=== PATIENT | female | born 1990 | race African-American/Black ===

== ENCOUNTER 2016-05-05 20:04 | Emergency (ER) | payer SELFPAY ==
[~2016-05-05] VITALS: Ht 154.9 cm; Wt 100.0 kg
[~2016-05-05 20:04] MED LIST: DICL75TA PO; ROBA750T PO
[2016-05-05 20:06] VITALS: BP 122/76; PULSE 80; RESP 18; TEMP 98.2; O2SAT 98
[2016-05-05] MEDS ORDERED: AMOXICILLIN (TRIHYDRATE) 500 MG CAP PO ONE (22:15)
[2016-05-05] MEDS ORDERED: IBUPROFEN 800 MG TAB PO ONE (22:15)
[2016-05-05] MEDS ORDERED: IBUP800T23 PO (22:15)
[2016-05-05] MEDS ORDERED: AMOX500T PO (22:15)
--- NOTE | 2016-05-05 22:18 | PD ---
HPI Chief Complaint: ENT Complaint Time Seen by Provider: 22:16 Travel History International Travel<30 days: No Contact w/Intl Traveler<30days: No Traveled to known affect area: No History of Present Illness HPI 25 year old black female presents to emergency department with a 2 day history of subjective fever and chills, right earache, sore throat and congestion. She states that she has difficulty swallowing due to pain. She denies any nausea vomiting. No abdominal pain or diarrhea. No dysuria or frequency. No rashes or lesions. Symptoms are moderate. Worse with swallowing. No alleviating factors. PFSH Past Medical History Narrative Medical General warts Hx Anticoagulant Therapy: No Blood Disorders: No Cancer: No Cardiovascular Problems: No Chemotherapy: No Cerebrovascular Accident: No Diabetes: No Diminished Hearing: No Immune Disorder: No Musculoskeletal: Yes (LEFT SHOULDER STRAIN 11/12) Neurologic: No Psychiatric: No Respiratory: No Immunizations Current: Yes (HEPATITIS PROFILE 2009 FOR [facility]) Tetanus Vaccination: < 5 Years ?: Not : 0 Past Surgical History Genitourinary Surgery: Yes Gynecologic Surgery: Yes (GENITAL WART BURNT OFF) Hysterectomy: No Other Surgery: Yes (abscess) Social History Alcohol Use: Yes (RARE) Tobacco Use: No Substance Use: No Allergies-Medications (Allergen,Severity, Reaction): Coded Allergies: No Known Allergies (Verified , 05/05/16) Reported Meds & Prescriptions Reported Meds & Active Scripts Active Ibuprofen 800 Mg Tab 800 Mg PO Q8H PRN Amoxicillin 500 Mg Tab 1,000 Mg PO BID Diclofenac Sodium DR (Diclofenac Sodium) 75 Mg Tabdr 75 Mg PO BID Robaxin (Methocarbamol) 750 Mg Tab 1,500 Mg PO TID 10 Days Review of Systems Except as stated in HPI: all other systems reviewed are Neg Physical Exam Narrative GENERAL: This is a well-nourished, well-developed patient, in no apparent distress. SKIN: No rashes, ecchymoses or lesions. Warm and dry. HEAD: Atraumatic. Normocephalic. EYES: PERRL, EOMI, no discharge or injection. No scleral icterus. EARS: Clear NOSE: Nasal turbinates appear normal. THROAT: Mucosa erythematous and moist. Airway patent. Patient has erythematous edematous exudative tonsils. NECK: Trachea midline. supple, moves head freely. LUNGS: Clear to auscultation. CV: Regular in rhythm. ABDOMEN: Soft nontender. EXT: No clubbing cyanosis or edema. Data Data Last Documented VS Vital Signs Date Time Temp Pulse Resp B/P Pulse Ox O2 Delivery O2 Flow Rate FiO2 05/05/16 20:06 98.2 80 18 122/76 98 Orders Amoxicillin (Trimox) (05/05/16 22:15) Ibuprofen (Motrin) (05/05/16 22:15) MDM Medical Decision Making Medical Screen Exam Complete: Yes Emergency Medical Condition: Yes Medical Record Reviewed: Yes Differential Diagnosis MDM: High Differential diagnoses: Strep throat, viral pharyngitis, mono, peritonsillar abscess, r, otitis media Narrative Course This is acute pharyngitis. Patient given amoxicillin 1 g by mouth and Motrin 800 mg by mouth. Diagnosis Primary Impression: acute exudative tonsillitis Patient Instructions: General Instructions Departure Forms: Tests/Procedures, Work Release Special Instructions: No work 3 days. Additional Instructions: Rest. Force fluids. Saltwater gargles. Tylenol. Chloraseptic [place] Cepastat lozenge. Amoxicillin and Motrin. Follow-up with a primary care doctor in one week. Return to the ER if any problems. Med/Other Pt SpecificInfo: Prescription(s) given Scripts Ibuprofen 800 Mg Til352 Mg PO Q8H PRN (Pain/Inflammation) #30 TAB Prov:Jarod Craven MD 05/05/16 Amoxicillin 500 Mg Tab1,000 Mg PO BID #40 TAB Prov:Jarod Craven MD 05/05/16 Disposition: 01 DISCHARGE HOME Condition: Stable Zack Ramires May 05, 2016 22:18
== END 2016-05-05 22:58 | disposition home or self-care (01) ==
LOC: NEPB 20:04
DX: J03.90 Acute tonsillitis, unspecified (principal)
CPT/HCPCS: 99283